=== PATIENT | female | born 1935 | race Caucasian/White ===

== ENCOUNTER 2020-08-08 15:48 | Emergency (ER) | payer MEDICARE ==
[2020-08-08 16:45] LABS: #Basophils 0.1 thou/uL (0.0-0.2); #Eosinphils 0.1 thou/uL (0.0-0.7); #Lymphocytes 1.8 thou/uL (1.20-3.40); #Monocytes 1.2 thou/uL (0.11-0.59); #Neutrophils 5.6 thou/uL (1.40-6.50); %Basophils 0.7 % (0.0-1.0); %Eosinophils 1.1 % (0.0-10.0); %Lymphocytes 20.9 % (21.0-51.0); %Monocytes 13.1 % (0.0-10.0); %Neutrophils 64.2 % (42.0-75.0); Hemoglobin 11.6 g/dL (12.0-16.0); Mean Corpuscular HGB CONC 33.7 g/dL (32.0-36.0); Mean Corpuscular Hemoglobin 32.8 pg (27.0-31.0); Mean Corpuscular Volume 97.4 fL (78.0-98.0); Mean Platelet Volume 9.6 fL (7.4-10.4); Platelet Count 123 thou/uL (130-400); RBC Distribution Width 13.3 % (11.5-14.5); Red Blood Cell (RBC) Count 3.53 mill/uL (4.20-5.40); White Blood Cell (WBC) Count 8.7 thou/uL (4.8-10.8)
--- NOTE | 2020-08-08 16:52 | RAD ---
Chest one view HISTORY: Dyspnea. Favored to thrive. COMPARISON: 05/04/2011. FINDINGS: Cardiac silhouette and pulmonary vasculature are unremarkable. Mediastinum is midline with mild S shaped curvature of the thoracic spine. Calcification of the aorta . No confluent airspace consolidation or evidence of pneumothorax. Lung markings extend beyond the skinfold over the left lateral chest that mimics a pneumothorax. Small mushroom shaped metallic density just to the right of the thoracolumbar junction of the spine w as not present on lumbar spine radiograph from 2019. It may represent extrinsic artifact such as a zipper, ingested material, or an embedded foreign body. Of doubtful clinical significance. IMPRESSION : Atherosclerosis. No active cardiopulmonary abnormalities are otherwise demonstrated.
[2020-08-08 17:08] LABS: ALT (SGPT) 13 U/L (8-55); AST (SGOT) 21 U/L (5-34); Albumin 3.7 g/dL (3.4-4.8); Alkaline Phosphatase 73 U/L (40-110); Anion Gap 13 mmol/L (10-20); BUN (Urea Nitrogen) 42 mg/dL (9.8-20.1); Bilirubin, Total 0.4 mg/dL (0.2-1.2); Calc. Creatinine Clearance 0 mL/min (70-130); Calcium 8.8 mg/dL (7.8-10.44); Carbon Dioxide 17 mmol/L (23-31); Chloride 110 mmol/L (98-107); Estimated GFR-MDRD 28; Globulin 2.3 g/dL (2.4-3.5); Glucose 112 mg/dL (83-110); Lipase 81 U/L (8-78); Potassium 4.2 mmol/L (3.5-5.1); Sodium 136 mmol/L (136-145)
[2020-08-08 17:15] LABS: Bilirubin Negative (Negative); Blood, Urine Negative (Negative); Clarity Clear (Clear); Glucose, Urine (Dipstick) Normal (Negative); Ketone, Urine Negative (Negative); Leukocyte 75 Leu/uL (Negative); Nitrite Negative (Negative); Protein, Urine (Dipstick) 20 mg/dL (Neg-Trace); RBC/HPF 0-3 HPF (0-3); Specific Gravity, Urine 1.021 (1.002-1.036); Squamous Epithelial None Seen HPF (0-3); Urobilinogen Normal mg/dL (Less than 2); WBC/HPF 21-50 HPF (0-3); pH, Urine 5.5 (5.0-9.0)
[2020-08-08 17:18] LABS: Bacteria/HPF 1+ HPF (None Seen)
[2020-08-08] MEDS ORDERED: cefTRIAXone\\ROCEPHIN 1 GM VIAL ONE ×2 (19:00→19:02)
[2020-08-08] MEDS ORDERED: Lidocaine 1% PF 5 ML VIAL ONE (19:02)
== END 2020-08-08 21:30 | disposition home or self-care (01) ==
LOC: ERS 15:48
DX: K94.09 Other complications of colostomy (principal); N39.0 Urinary tract infection, site not specified; N28.9 Disorder of kidney and ureter, unspecified; Z79.899 Other long term (current) drug therapy; Z79.52 Long term (current) use of systemic steroids; Z85.038 Personal history of other malignant neoplasm of large intestine
CPT/HCPCS: 36415; 71045; 80053; 81003; 81015; 83690; 85025; 87086; 93005; 96372; J0696